=== PATIENT | female | born 1985 | race Caucasian/White ===

== ENCOUNTER → 2023-12-09 14:51 | Outpatient (REF) | payer BC, SELFPAY | LOC: HWRAD 14:51 | PROVIDERS: ATTENDING PHYSICIAN Nurse Practitioner Obstetrics & Gynecology; FAMILY PHYSICIAN Physician Assistant | DX: D21.9 Benign neoplasm of connective and other soft tissue, unspecified (principal) | CPT/HCPCS: 76830; 76856 ==